=== PATIENT | female | born 1960 | race Caucasian/White ===

== ENCOUNTER 2017-10-01 05:37 | Day surgery (SDC) | payer OTHER ==
[~2017-10-01] VITALS: Ht 162.6 cm; Wt 102.1 kg
--- NOTE | ~2017-10-01 | EKG ---
[address] [address] ELECTROCARDIOGRAM REPORT Name: AMITA IRELAND Room #: [facility]#: [id number] Admission: 10/01/17 Attend Phys: Payam Luna MD Discharge: 10/01/17 Date of : 60 Report #: [id number] THIS REPORT FOR: //name// [facility] Test Date: 2017-10-01 Test Time: 12:05:24 Pat Name: AMITA IRELAND Department: Room: 150 12 Gender: F Data Processing Manager: JONG : 1960 Requested By: Payam Luna Order Number: [id number] MD: Armando Newman Measurements Intervals [place] Rate: 85 P: 40 AK: 155 QRS: 10 QRSD: 88 T: 33 QT: 394 QTc: 469 Interpretive Statements Sinus rhythm No significant abnormality No previous ECG available for comparison Electronically Signed On 10-02-2017 7:29:37 CDT by Armando Newman [email or web address] <ELECTRONICALLY SIGNED> By: Armando Newman MD, [facility] 10/02/17 0729 1205 1205 Armando Newman MD, FACC /EPI
--- NOTE | ~2017-10-01 | H ---
[facility] [place] [address] HISTORY AND PHYSICAL Name: AMITA IRELAND Room #: 150-12 [facility] M.R.#: [id number] Admission: 10/01/17 Attend Phys: Payam Luna MD Discharge: Date of : 60 Report #: [id number] THIS REPORT FOR: //name// CC: KATHLEEN Luna Patient of Dr. Kathleen Lott, Dr. Malorie Valderrama, Dr. Payam Luna. DATE OF SURGERY: 10/01/2017. CHIEF COMPLAINT: "Abdominal bulge and a lump in my forehead." HISTORY OF PRESENT ILLNESS: The patient is a 56-year-old white female who for a couple of months noticed a bulge on the medial aspect of the right upper quadrant subcostal open cholecystectomy incision scar. She stated it is not significantly painful. No changes in bowel or bladder habits. She had a normal colonoscopy a year ago. Her open cholecystectomy was in 1988. She also has noticed a nodule on her left anterior upper forehead, which has been present for about 5 years, and she thinks it is getting larger. Dr. Valderrama, her primary care physician, recommended surgical consultation. PAST MEDICAL HISTORY: Hypertension, open cholecystectomy in 1988. MEDICATIONS: Amlodipine 10 mg p.o. q. day, quinapril 40 mg p.o. q. day, multivitamin, calcium, vitamin D, Aleve p.r.n. ALLERGIES: SULFA. FAMILY HISTORY: Mother with hypertension and breast cancer, brother with a history of diabetes. SOCIAL HISTORY: , quit smoking in 1988. Drinks alcohol occasionally. REVIEW OF SYSTEMS: Pertinent positives as above. Full review of systems as per electronic medical record as reviewed by myself. PHYSICAL EXAMINATION: GENERAL: This is a well-developed, well-nourished, morbidly obese white female, in no acute distress. VITAL SIGNS: Stable. She is afebrile. HEENT: Sclerae are nonicteric. Mucous membranes moist and pink. NECK: There is no adenopathy. There is left upper anterior forehead, there is a 2.5 x 2 cm smooth, mobile subcutaneous mass. LUNGS: Clear to auscultation bilaterally. Normal excursion. CARDIOVASCULAR: Regular rate and rhythm. No murmurs, S3, S4, no PMI. [address] [address] HISTORY AND PHYSICAL Name: AMITA IRELAND Room #: 150-12 [facility] M.R.#: [id number] Admission: 10/01/17 Attend Phys: Payam Luna MD Discharge: Date of : 60 Report #: [id number] ABDOMEN: Obese, soft, flat, nontender, no palpable masses, no organomegaly. There is a healed right subcostal incision scar in the medial aspect of the incision scar. There is a palpable reducible ventral incisional hernia and no other organomegaly or masses. EXTREMITIES: No clubbing, cyanosis or edema. NEUROLOGIC: Intact with a clear mental status. IMPRESSION: A 56-year-old white female with a left subcostal ventral incisional hernia and a soft tissue tumor of the left upper forehead. I fully discussed with the patient the diagnosis, prognosis and treatment options. She states she understands and wished to proceed with surgery. PLAN: We will perform a ventral incisional hernia repair with possible mesh and excision of a left forehead soft tissue tumor under general anesthesia as an outpatient at [facility]. The procedures, risks, benefits and possible complications including possible need for mesh were fully discussed with the patient, she states she understands and agrees with proposed surgery. <ELECTRONICALLY SIGNED> By: Payam Luna MD 10/01/17 1507 1611 1649 Payam Luna MD /nt
--- NOTE | ~2017-10-01 | O ---
[facility] [place] [address] OPERATIVE REPORT Name: AMITA IRELAND Room #: 150-12 [facility]..#: [id number] Admission: 10/01/17 Attend Phys: Payam Luna MD Discharge: Date of : 60 Report #: [id number] THIS REPORT FOR: //name// CC: Kathleen Luna DATE OF SERVICE: 10/01/[address] Payam Luna, Dr. Kathleen Lott, Dr. Malorie Valderrama. PREOPERATIVE DIAGNOSES: A 2.2 cm x 1.5 cm soft tissue mass of the left forehead and a ventral incisional hernia. POSTOPERATIVE DIAGNOSES: A 2.2 cm x 1.5 cm soft tissue mass of the left forehead and a ventral incisional hernia. PROCEDURE: Repair of an incarcerated ventral incisional hernia and excision of a soft tissue tumor. The left upper forehead measuring 2.2 x 1.5 cm with complex layered closure. SURGEON: Payam Luna MD ANESTHESIA: General. DESCRIPTION OF PROCEDURE: The patient was brought to the operating room and placed on operative table in the supine position. Sequential compression devices were in place for DVT prophylaxis. The abdomen was then prepped and draped in a sterile fashion. There was no indication for preoperative antibiotics. Skin and subcutaneous tissue overlying the incarcerated ventral incisional hernia in the medial aspect of the right subcostal incision scar was infiltrated with 0.5% Marcaine and incised with a #15 scalpel blade. Hemostasis obtained using electrocautery. Dissection was carried down through subcutaneous tissue to the hernia sac, which was identified and dissected free. There was some incarcerated preperitoneal fat. This was dissected free and reduced back through the fascial defect. There were 2 other smaller defects medial and lateral to this larger defect. They were all dissected free and reduced back through the fascia into the preperitoneal space. The fascial defects were then closed using interrupted [id number] #1 Prolene sutures. Deep and superficial subcutaneous tissue was then reapproximated using simple interrupted 2-0 chromic sutures and the skin then closed with a running 4-0 subcuticular Vicryl stitch. The wound was then dressed with Mastisol, 1/2-inch Steri-Strips cut in half, Telfa, 4 x 4 gauze, sponge and tape. Attention was then turned to the left forehead. This was prepped and draped in a sterile fashion. Skin and subcutaneous tissue were then infiltrated with the same 0.5% Marcaine plain. A [address] [address] OPERATIVE REPORT Name: AMITA IRELAND Room #: [address] [place] [address] M.R.#: [id number] Admission: 10/01/17 Attend Phys: Payam Luna MD Discharge: Date of : 60 Report #: [id number] transverse skin incision was performed over the mass along the edge of the hairline using a #15 scalpel blade. Hemostasis obtained using electrocautery. Dissection was carried down through subcutaneous tissue and around this mass using the Metzenbaum scissors. The area in question was completely excised and sent to pathology for permanent study. Meticulous hemostasis was checked and obtained there using the electrocautery. The subcutaneous tissue was then reapproximated using simple interrupted 3-0 Vicryl sutures. Skin was then closed using running 4-0 subcuticular Vicryl stitch and the wound then dressed with Dermabond. The patient was then awakened from the general LMA anesthesia and taken to recovery room in good condition. Estimated blood loss was approximately 10 mL total for both procedures and the patient tolerated procedure well. All sponge, lap and instrument counts correct x 2. By: 1505 1601 Payam Luna MD /nt
--- NOTE | ~2017-10-01 | PATH ---
[facility] [address] [place] [address] PATHOLOGY RPT PROCEDURE Name: CINHTYA IRELAND Room #: [facility]P [facility] M..#: [id number] Admission: 10/01/17 Date of : 60 Discharge: 10/01/17 Report #: [id number] Path Case #: [id number] [facility] Accession Number: [id number] . 01 Material submitted: . MASS LEFT FOREHEAD . 01 Clinical history: . Incisional ventral hernia, forehead mass . 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 (SHA:pit; 10/05/2017) QTP/10/05/2017 . 02 Electronically signed: . Elfego Wade MD, Pathologist NPI- [id number] . 01 Gross description: . The specimen is received in formalin, labeled "Cinthya Ireland, mass left forehead". Received is a segment of bright yellow lobulated tissue measuring 1.9 x 1.5 x 0.6 cm in greatest dimensions. Sectioning reveals bright yellow, lobulated cut surfaces with no grossly distinct nodules or lesions. The specimen is submitted entirely in cassette A1. (CAA; 10/02/2017) QAC/QAC . 02 Pathologist provided ICD-10: D17.79 . 02 CPT . 379270 Performed at: [address], [place] [id number] MD Jerrell Rice MD Phone: [phone] Performed at: [address] [id number] MD Siri Christianson MD Phone: [phone]
[~2017-10-01 05:37] MED LIST: ACCUPRIL40 MG PO; CALCIUM 600 +1 EA11 PO; MULTI VITAMIN1 EACH PO; NORVASC10 MG PO
[2017-10-01 12:43] VITALS: BP 150/92
[2017-10-01] MEDS ORDERED: HYDROCODONE-AP1 EAC6 PO (15:11)
[2017-10-01 15:24] VITALS: BP 150/92
== END 2017-10-01 16:10 | disposition home or self-care (01) ==
LOC: OR 05:37 → TBA 05:38 → OR 11:59
DX: K43.0 Incisional hernia with obstruction, without gangrene (principal); D17.0 Benign lipomatous neoplasm of skin and subcutaneous tissue of head, face and neck; I10 Essential (primary) hypertension; Z90.49 Acquired absence of other specified parts of digestive tract; Z79.899 Other long term (current) drug therapy; Z88.2 Allergy status to sulfonamides; Z82.49 Family history of ischemic heart disease and other diseases of the circulatory system; Z80.3 Family history of malignant neoplasm of breast; Z83.3 Family history of diabetes mellitus; Z87.891 Personal history of nicotine dependence
CPT/HCPCS: 50010; 50101; 50386; 50417; 54118; 56524; 56525; 56526; 62110; 62900; 70005